=== PATIENT | female | born 1960 | race African-American/Black ===

== ENCOUNTER 2018-11-02 06:20 | Emergency (ER) | payer OTHER | END 2018-11-02 08:12 | disposition home or self-care (01) | LOC: JER 06:20 ==

== ENCOUNTER 2019-08-01 09:14 | Emergency (ER) | payer OTHER ==
[2019-08-01 09:21] VITALS: BP 128/70; PULSE 70; TEMP 97.2; BMI 24.2
[2019-08-01] MEDS ORDERED: diphenhydrAMINE HCL 25 MG CAPSULE (FP) PO ONE ×2 (10:17→10:24)
[2019-08-01] MEDS ORDERED: predniSONE 20 MG TABLET (UD) PO ONE (10:18)
[2019-08-01] MEDS ORDERED: FAMOTIDINE 40 MG/5 ML ORAL SUSPENSION PO ONE (10:18)
[2019-08-01] MEDS ORDERED: FAMOTIDINE 20 MG TABLET ONE (10:24)
[2019-08-01] MEDS ORDERED: predniSONE 20 MG TABLET (UD) ONE (10:24)
--- NOTE | 2019-08-01 10:24 | PDOC ---
History of Present Illness - General Chief Complaint: Rash Stated Complaint: RASH/ITCHY SKIN Time Seen by Provider: 08/01/19 10:13 History Source: Patient Exam Limitations: No Limitations - History of Present Illness Initial Comments: 08/01/19 10:20 58-year-old female presents to the ED with complaint of a rash on her face and her bilateral upper extremities for the last 3 days. She feels as if the rash started when she started using gain laundry detergent which she has never used in the past. She states the rash is incredibly itchy and her face feels very irritated. She denies any shortness of breath, lip swelling or tongue swelling. She states she is eating and drinking well. She denies difficulty tolerating her own secretions. She has not taken anything for her symptoms. She has been using cold water to help relieve her symptoms. She does state to scratching her arm significantly while sleeping. She has a history of thyroid disease and denies any allergies to medications. Past History - Past Medical History Allergies/Adverse Reactions: Allergies Allergy/AdvReac Type Severity Reaction Status Date / Time No Known Allergies Allergy Verified 08/01/19 09:17 Home Medications: Ambulatory Orders Amlodipine Besylate [Norvasc -] 10 mg PO DAILY 10/02/14 Metoprolol Succinate [Toprol XL -] 100 mg PO DAILY 05/30/15 Levothyroxine [Synthroid -] 112 mcg PO DAILY 12/22/17 Cyclobenzaprine HCl 10 mg PO HS 30 Days #30 tablet 03/15/18 Cetirizine HCl [Zyrtec -] 10 mg PO DAILY #7 tablet 08/01/19 Diphenhydramine HCl [Benadryl -] 50 mg PO ONCE 7 Days #14 capsule 08/01/19 Famotidine [Pepcid] 20 mg PO BID 7 Days #14 tablet 08/01/19 predniSONE [Deltasone -] 60 mg PO DAILY #12 tablet 08/01/19 Anemia: No Asthma: No Cancer: No Cardiac Disorders: No CVA: No COPD: No CHF: No Dementia: No Diabetes: No Disorders: No HTN: Yes Liver Disease: No Seizures: No Thyroid Disease: Yes (hyper) - Reproductive History (#): 3 Para: 2 - Immunization History Immunization Up to Date: No - Psycho Social/Smoking Cessation Hx Smoking Status: Yes Smoking History: Never smoked Have you smoked in the past 12 months: No Information on smoking cessation initiated: No 'Breaking Loose' booklet given: 05/31/15 Hx Alcohol Use: No Drug/Substance Use Hx: No Substance Use Type: None Hx Substance Use Treatment: No Review of Systems - Review of Systems Comments:: 08/01/19 10:21 - Review of Systems Able to Perform ROS?: Yes Constitutional: No: Fever, Chills, Loss of Appetite, Night Sweats, Weakness HEENTM: No: Eye Pain, Vision changes, Ear Pain, Throat Pain, Throat Swelling, Mouth Pain, Difficulty Swallowing Respiratory: No: Cough, Shortness of Breath, Wheezing, Sputum Production Cardiac (ROS): No: Chest Pain, Chest Tightness, Palpitations, Irregular Heart Beat, Edema ABD/GI: No: Nausea, Vomiting, Abdominal Pain, Diarrhea : No Dysuria, No Hematuria, No Frequency, No Urgency Musculoskeletal: No: Muscle Pain, Back Pain, Joint Pain, Muscle Weakness, Neck Pain Integumentary: No: Lesions; positive: Rash to the face and upper extremities bilateral Neurological: No: Headache, Numbness, Tingling, Weakness, Speech Difficulties *Physical Exam - Vital Signs Last Vital Signs Temp Pulse Resp BP Pulse Ox 97.2 F L 70 17 128/70 97 08/01/19 09:17 08/01/19 09:17 08/01/19 09:17 08/01/19 09:17 08/01/19 09:17 - Physical Exam 08/01/19 10:22 - Physical Exam General Appearance: Nourished, Appropriately Dressed, No Distress HEENT: EOMI, Normal Voice, No Pharyngeal Erythema, No Muffled/Hoarse voice, No Tonsillar Exudate, No Tonsillar Erythema, No Nasal Congestion, No Rhinorrhea, Hearing Grossly Normal, TMs Normal, No TM Bulging, No TM Dullness, No TM Erythema. Uvula midline and without edema. Airway patent. No stridor. Neck: Supple, No Lymphadenopathy (R), No Lymphadenopathy (L), No Rigidity, No Decreased range of motion Respiratory/Chest: Lungs Clear, Normal Breath Sounds. No Respiratory Distress, No Accessory Muscle Use. Good air entry bilateral. No wheezes/rales/rhonchi. No retractions. Cardiovascular: Regular Rhythm, Regular Rate, S1, S2 Gastrointestinal/Abdominal: Normal Bowel Sounds, Soft. Non-tender, No Guarding, No Rebound, No Rigidity Musculoskeletal: Normal Inspection. No Decreased Range of Motion Extremity: Normal Capillary Refill, Normal Inspection Integumentary: Normal Color, Dry. Urticarial rash to the diffuse face and bilateral upper extremities. The face appears swollen and irritated. Bilateral upper extremities with significant excoriations and scabs appreciated. No sign of overlying infection. No cellulitis. No pustules or vesicles appreciated. 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 Plan: -Pepcid, Benadryl and prednisone ordered -Will reassess 08/01/19 11:28 The patient is feeling okay and we will discharge her on Pepcid, Benadryl and prednisone. She has been advised to follow-up with her primary doctor within 1 to 2 days for repeat evaluation. She has been given strict return precaution such as worsening rash, mouth or tongue swelling, difficulty tolerating her own secretions, difficulty breathing or any other worsening symptoms. She also has been encouraged to stop using the gain laundry detergent and use a free and clear laundry detergent. She understands and agrees with this treatment plan and she is stable for discharge. Discharge - Discharge Information Problems reviewed: Yes Clinical Impression/Diagnosis: Urticaria Allergic reaction Qualifiers: Encounter type: initial encounter Qualified Code(s): T78.40XA - Allergy, unspecified, initial encounter Condition: Stable Disposition: HOME - Additional Discharge Information Prescriptions: Diphenhydramine HCl [Benadryl -] 50 mg PO ONCE 7 Days #14 capsule predniSONE [Deltasone -] 60 mg PO DAILY #12 tablet Famotidine [Pepcid] 20 mg PO BID 7 Days #14 tablet Cetirizine HCl [Zyrtec -] 10 mg PO DAILY #7 tablet - Follow up/Referral Referrals: Thomas Valencia MD [Primary Care Provider] - 24 hours - Patient Discharge Instructions Patient Printed Discharge Instructions: DI for General Allergic Reactions Additional Instructions: Avoid using the gain laundry detergent and use a Free and clear laundry detergent. Take the medications as prescribed to help with the allergic reaction. You can take Zyrtec in the daytime and Benadryl at night for the allergic reaction. Follow-up with your primary doctor tomorrow for repeat evaluation. Return to the emergency department for worsening symptoms such as worsening rash, mouth or tongue swelling, difficulty tolerating her own secretions, difficulty breathing or any other worsening symptoms. - Post Discharge Activity Work/Back to School Note: Back to Work
== END 2019-08-01 11:44 | disposition home or self-care (01) ==
LOC: JERFT 09:14
DX: T55.1X1A Toxic effect of detergents, accidental (unintentional), initial encounter (principal); L50.0 Allergic urticaria; X58.XXXA Exposure to other specified factors, initial encounter; Y92.038 Other place in apartment as the place of occurrence of the external cause
CPT/HCPCS: 99283-25